=== PATIENT | female | born 1955 | race Caucasian/White ===

== ENCOUNTER → 2018-11-23 | Outpatient (CLI) | payer MEDICARE, BC | END | disposition home or self-care (01) | LOC: HKI 09:49 | DX: M25.552 Pain in left hip (principal); M25.551 Pain in right hip; M70.62 Trochanteric bursitis, left hip; M70.61 Trochanteric bursitis, right hip; M81.0 Age-related osteoporosis without current pathological fracture | CPT/HCPCS: 73523 ==